=== PATIENT | female | born 1955 | race Caucasian/White ===

== ENCOUNTER 2022-05-02 09:06 | Outpatient (CLI) | payer MEDICARE | END 2022-05-02 09:07 | disposition home or self-care (01) | LOC: CSHRAD 09:06 | PROVIDERS: ATTEND Surgery | DX: R12 Heartburn (principal); Z98.84 Bariatric surgery status; K95.09 Other complications of gastric band procedure; K31.89 Other diseases of stomach and duodenum | CPT/HCPCS: 74246 ==